=== PATIENT | female | born 1945 ===

== ENCOUNTER 2021-03-03 01:46 | Outpatient (CLI) | payer MEDICARE, BC, SELFPAY ==
--- NOTE | 2021-03-03 10:15 | DI.NM_ITS ---
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 COMPARISON: No exams were available for comparison TECHNIQUE: Whole body bone scan was performed with intravenous infusion of 25.0 millicuries of techn etium 99 labeled methylene diphosphonate. Additional planar views of pelvic region were obtained. There is right hip prosthesis in place. There is normal urinary tract uptake. There are subtle areas of increased uptake in lower lumbar spine which are nonspecific. There are fo mt areas of mildly increased uptake at the shoulders bilaterally probably representing degenerative changes. There does not appear to be increased uptake in the region of the sacrum or coccyx. FINDINGS: Fairly low intensity areas of increased uptake are noted in lower lumbar spine which are nonspecific. Lumbar spine radiographs requested for correlation to determine whether these are likely to be seco ndary to degenerative changes. IMPRESSION: DATA REPOSITORY:
== END 2021-03-03 02:06 ==
PROVIDERS: PCP Physician Assistant; Visit Provider Radiology Radiation Oncology
DX: C50.911 Malignant neoplasm of unspecified site of right female breast (principal); R93.89 Abnormal findings on diagnostic imaging of other specified body structures
CPT/HCPCS: 78306